=== PATIENT | female | born 1940 | race African-American/Black ===

== ENCOUNTER → 2017-10-03 | Outpatient (CLI) | payer BC ==
[2017-10-03] MEDS: IOHEXOL 300 MG/ML 100ML VIAL. IV (12:23)
== END | disposition home or self-care (01) ==
LOC: CT 11:15
DX: R91.8 Other nonspecific abnormal finding of lung field (principal); R79.1 Abnormal coagulation profile; R06.02 Shortness of breath
CPT/HCPCS: 71275; Q9967